=== PATIENT | female | born 1965 | race African-American/Black ===

== ENCOUNTER 2017-05-31 09:07 | Emergency (ER) | payer MEDICAID ==
[~2017-05-31] VITALS: Ht 162.6 cm; Wt 82.0 kg
[2017-05-31] MEDS ORDERED: TETRACAINE 0.5% OPHTH DROPS 4ML BOTHEYE ONE (10:00)
[2017-05-31] MEDS ORDERED: FLUORESCEIN SODIUM 1MG/STRIP BOTHEYE ONE (10:00)
[2017-05-31 13:44] VITALS: BP 140/82
== END 2017-05-31 13:57 | disposition home or self-care (01) ==
LOC: ER 09:07
DX: T15.91XA Foreign body on external eye, part unspecified, right eye, initial encounter (principal); H10.30 Unspecified acute conjunctivitis, unspecified eye; Z88.0 Allergy status to penicillin
CPT/HCPCS: 65222; 99284; J7040; Z7610; 65220

== ENCOUNTER 2017-07-05 13:48 | Emergency (ER) | payer MEDICAID ==
[~2017-07-05] VITALS: Ht 165.1 cm; Wt 85.0 kg
[2017-07-05 15:48] VITALS: BP 132/72
== END 2017-07-05 16:21 | disposition home or self-care (01) ==
LOC: ER 14:41
DX: M25.562 Pain in left knee (principal); Z88.0 Allergy status to penicillin; W01.0XXA Fall on same level from slipping, tripping and stumbling without subsequent striking against object, initial encounter; Y93.01 Activity, walking, marching and hiking; Y92.89 Other specified places as the place of occurrence of the external cause; Y99.8 Other external cause status
CPT/HCPCS: 73562; 99284